=== PATIENT | male | born 1990 | race Caucasian/White ===

== ENCOUNTER → 2016-07-11 | Outpatient (CLI) | payer BC ==
[2016-07-11 10:14] LABS: PROTHROMBIN TIME 30.2 SEC (11.4-15.4)
== END ==
LOC: OD 09:15
PROVIDERS: ATTEND Internal Medicine
DX: I34.0 Nonrheumatic mitral (valve) insufficiency (principal); Z79.01 Long term (current) use of anticoagulants
CPT/HCPCS: 36415; 85610

== ENCOUNTER → 2016-09-02 | Outpatient (CLI) | payer BC ==
[2016-09-02 17:52] LABS: PROTHROMBIN TIME 27.2 SEC (11.4-15.4)
== END ==
LOC: OD 16:53
PROVIDERS: ATTEND Internal Medicine
DX: I34.0 Nonrheumatic mitral (valve) insufficiency (principal); Z79.01 Long term (current) use of anticoagulants
CPT/HCPCS: 36415; 85610

== ENCOUNTER → 2016-09-29 | Outpatient (CLI) | payer OTHER, BC ==
[2016-09-29 17:51] LABS: PROTHROMBIN TIME 19.7 SEC (11.4-15.4)
== END ==
LOC: OD 17:04
PROVIDERS: ATTEND Internal Medicine
DX: I34.0 Nonrheumatic mitral (valve) insufficiency (principal); Z79.01 Long term (current) use of anticoagulants
CPT/HCPCS: 36415; 85610

== ENCOUNTER → 2016-10-06 | Outpatient (CLI) | payer BC, OTHER ==
[2016-10-06 18:12] LABS: PROTHROMBIN TIME 27.7 SEC (11.4-15.4)
== END ==
LOC: OD 16:54
PROVIDERS: ATTEND Internal Medicine
DX: Z79.01 Long term (current) use of anticoagulants (principal); I34.0 Nonrheumatic mitral (valve) insufficiency
CPT/HCPCS: 36415; 85610

== ENCOUNTER → 2016-11-17 | Outpatient (CLI) | payer BC ==
[2016-11-17 17:52] LABS: PROTHROMBIN TIME 26.5 SEC (11.4-15.4)
== END ==
LOC: OD 16:54
PROVIDERS: ATTEND Internal Medicine
DX: I34.0 Nonrheumatic mitral (valve) insufficiency (principal); Z79.01 Long term (current) use of anticoagulants
CPT/HCPCS: 36415; 85610

== ENCOUNTER → 2016-12-15 | Outpatient (CLI) | payer BC ==
[2016-12-15 18:29] LABS: PROTHROMBIN TIME 33.1 SEC (11.4-15.4)
== END ==
LOC: OD 17:09
PROVIDERS: ATTEND Internal Medicine
DX: I34.0 Nonrheumatic mitral (valve) insufficiency (principal); Z79.01 Long term (current) use of anticoagulants
CPT/HCPCS: 36415; 85610

== ENCOUNTER → 2017-01-29 | Outpatient (CLI) | payer BC ==
[2017-01-29 18:17] LABS: PROTHROMBIN TIME 26.9 SEC (11.4-15.4)
== END ==
LOC: OD 16:46
PROVIDERS: ATTEND Internal Medicine
DX: I34.0 Nonrheumatic mitral (valve) insufficiency (principal); Z79.01 Long term (current) use of anticoagulants
CPT/HCPCS: 36415; 85610

== ENCOUNTER → 2017-03-19 | Outpatient (CLI) | payer BC | LOC: OD 16:59 | PROVIDERS: ATTEND Specialist | DX: Z79.01 Long term (current) use of anticoagulants (principal); Z95.2 Presence of prosthetic heart valve | CPT/HCPCS: 36415; 85610 ==

== ENCOUNTER → 2017-04-06 | Outpatient (CLI) | payer BC ==
--- NOTE | 2017-04-09 11:34 | XCELERA REPORT ---
[address] [address] Transthoracic Echocardiogram Report Name: LORI THOMPSON Age: 26 yrs Gender: Male : 1990 Patient Status: Outpatient Patient Location: Study Date: 04/06/2017 09:22 AM Height: 71 in Weight: 215 lb BSA: 2.2 m2 Procedure: A complete two-dimensional transthoracic echocardiogram was performed (2D, M-mode, spectral and color flow Doppler). The study was technically difficult with many images being suboptimal in quality. Reason For Study: PROSTHETIC HEART VALVE, AVR Z95.2 Ordering Physician: EMERALD ROJAS Performed By: Kate Nguyen Interpretation Summary The left ventricular ejection fraction is normal. There is borderline concentric left ventricular hypertrophy. The left ventricle is grossly normal size. LV diastolic function could not be adequately assessed. Wall motion cannot be accurately commented on, but no definite regional wall motion abnormalities noted. The right ventricular systolic function is normal. The right atrium is normal. The left atrial size is normal. There is a trace to mild amount of mitral regurgitation There is no mitral valve stenosis. There is a mechanical aortic valve. The prosthetic aortic valve is not well visualized. Mechanical Prosthetic valve, seems to be opening and closing normally. There is a trace or physiologic amount of tricuspid regurgitation Tricuspid regurgitation jet envelope not well defined to measure RV systolic pressure accurately. The aortic root is not well visualized but is probably normal size. The inferior vena cava appeared normal and decreased > 50% with respiration (RAP 5-10 mmHg) There is no pericardial effusion. MMode/2D Measurements & Calculations RVDd: 2.4 cm LVIDd: 4.9 cm FS: 40.0 % Ao root diam: 2.1 cm IVSd: 0.96 cm LVIDs: 2.9 cm EDV(Teich): 112.3 ml LVPWd: 0.96 cmESV(Teich): 33.2 ml Ao root area: 3.5 cm2 EF(Teich): 70.4 % LVOT diam: 2.0 cm LVOT area: 3.0 cm2 Doppler Measurements & Calculations MV E max mohan: MV dec slope: Ao V2 max: LV V1 max P.4 cm/sec 417.4 cm/sec2 242.7 cm/sec 1.6 mmHg MV A max mohan: MV dec time: Ao max PG: LV V1 mean P.9 cm/sec 0.22 sec 23.6 mmHg 1.0 mmHg MV E/A: 1.2 Ao V2 mean: LV V1 max: 174.1 cm/sec 63.7 cm/sec Ao mean PG: LV V1 mean: 13.4 mmHg 48.5 cm/sec Ao V2 VTI: 42.7 cm LV V1 VTI: ANTONIO(I,D): 1.1 cm2 15.2 cm ANTONIO(V,D): 0.80 cm2 SV(LVOT): 46.2 ml PA V2 max: 92.4 cm/sec PA max P.4 mmHg Left Ventricle The left ventricle is grossly normal size. There is borderline concentric left ventricular hypertrophy. The left ventricular ejection fraction is normal. LV diastolic function could not be adequately assessed. Wall motion cannot be accurately commented on, but no definite regional wall motion abnormalities noted. Right Ventricle The right ventricle is grossly normal size. There is normal right ventricular wall thickness. The right ventricular systolic function is normal. Atria The right atrium is normal. The left atrial size is normal. Interarterial septum not well visualized and not well dopplered. Cannot comment on ASD/PFO presence. Mitral Valve The mitral valve is grossly normal. There is no mitral valve stenosis. There is a trace to mild amount of mitral regurgitation. Aortic Valve Mechanical Prosthetic valve, seems to be functioning normally. There is a mechanical aortic valve. The prosthetic aortic valve is not well visualized. Tricuspid Valve The tricuspid valve is not well visualized secondary to technical limitations. There is no tricuspid stenosis. There is a trace or physiologic amount of tricuspid regurgitation. Tricuspid regurgitation jet envelope not well defined to measure RV systolic pressure accurately. Pulmonic Valve The pulmonic valve is not well visualized. Great Vessels The aortic root is not well visualized but is probably normal size. The inferior vena cava appeared normal and decreased > 50% with respiration (RAP 5-10 mmHg). Effusions There is no pericardial effusion. : EMERALD ROJAS > Paulo Briceno
== END ==
LOC: SP 09:12
PROVIDERS: ATTEND Specialist
DX: Z95.2 Presence of prosthetic heart valve (principal)
CPT/HCPCS: 93306

== ENCOUNTER → 2017-04-20 | Outpatient (CLI) | payer BC ==
[2017-04-20 18:20] LABS: ABSOLUTE LYMPHOCYTES (AUTO) 2.4 10^3/uL (0.5-4.7); ABSOLUTE MONOCYTES (AUTO) 0.6 10^3/uL (0.1-1.4); ABSOLUTE NEUT (AUTO) 4.7 10^3/uL (1.7-8.2); BASOPHILS % (AUTO) 0.5 % (0-2); EOSINOPHILS % (AUTO) 0.4 % (0-6); HEMATOCRIT 44.9 % (37.9-51.0); HEMOGLOBIN 15.6 g/dL (13.5-17.0); HGB HCT DIFFERENCE 1.9; LYMPHOCYTES % (AUTO) 30.7 % (13-45); MEAN CORPUSCULAR HGB CONC 34.6 g/dL (32.0-36.0); MEAN CORPUSCULAR VOLUME 87 fl (80-97); MONOCYTES % (AUTO) 7.8 % (3-13); RED BLOOD COUNT 5.19 10^6/uL (4.35-5.55); SEGMENTED NEUTROPHILS % (AUTO) 60.6 % (42-78); WHITE BLOOD COUNT 7.7 10^3/uL (4.0-10.5)
[2017-04-20 18:26] LABS: PROTHROMBIN TIME 28.4 SEC (11.4-15.4)
[2017-04-20 19:03] LABS: ALANINE AMINOTRANSFERASE 50 U/L (21-72); ALBUMIN 4.8 g/dL (3.5-5.0); ALKALINE PHOSPHATASE 83 U/L (38-126); ANION GAP 13 (5-19); ASPARTATE AMINO TRANSFERASE 63 U/L (17-59); BILIRUBIN,DIRECT 0.5 mg/dL (0.0-0.4); BILIRUBIN,TOTAL 0.9 mg/dL (0.2-1.3); BLOOD UREA NITROGEN 13 mg/dL (7-20); CALCIUM 9.4 mg/dL (8.4-10.2); CARBON DIOXIDE 27 mmol/L (22-30); CHLORIDE 104 mmol/L (98-107); CREATININE RESULT 0.92 mg/dL (0.52-1.25); GLUCOSE 63 mg/dL (75-110); POTASSIUM 3.8 mmol/L (3.6-5.0); SODIUM 143.6 mmol/L (137-145); TOTAL PROTEIN 7.9 g/dL (6.3-8.2)
== END ==
LOC: OD 17:09
PROVIDERS: ATTEND Internal Medicine
DX: I36.1 Nonrheumatic tricuspid (valve) insufficiency (principal); R01.1 Cardiac murmur, unspecified; E78.5 Hyperlipidemia, unspecified; Z79.01 Long term (current) use of anticoagulants; Z79.899 Other long term (current) drug therapy; Z95.2 Presence of prosthetic heart valve
CPT/HCPCS: 36415; 80053; 85025; 85610

== ENCOUNTER → 2017-04-26 | Outpatient (CLI) | payer BC ==
[2017-04-26 09:27] LABS: CHOLESTEROL 131.53 mg/dL (0-200); Direct HDL 37 mg/dL (>40); TRIGLYCERIDES 70 mg/dL (<150)
[2017-04-26 09:37] LABS: DIRECT LDL 80 mg/dL (<100)
== END ==
LOC: LAB 08:04
PROVIDERS: ATTEND Internal Medicine
DX: Z95.2 Presence of prosthetic heart valve (principal); I36.1 Nonrheumatic tricuspid (valve) insufficiency; R01.1 Cardiac murmur, unspecified; Z79.01 Long term (current) use of anticoagulants; E78.5 Hyperlipidemia, unspecified; Z79.899 Other long term (current) drug therapy
CPT/HCPCS: 36415; 80061

== ENCOUNTER → 2017-06-16 | Outpatient (CLI) | payer BC ==
[2017-06-16 16:57] LABS: PROTHROMBIN TIME 30.5 SEC (11.4-15.4)
== END ==
LOC: OD 15:53
PROVIDERS: ATTEND Specialist
DX: Z95.2 Presence of prosthetic heart valve (principal); Z79.01 Long term (current) use of anticoagulants
CPT/HCPCS: 36415; 85610

== ENCOUNTER → 2017-07-25 | Outpatient (CLI) | payer BC ==
[2017-07-25 10:17] LABS: INTERNATIONAL RATION (INR) 2.03; PROTHROMBIN TIME 24.1 SEC (11.4-15.4)
== END ==
LOC: OD 09:37
PROVIDERS: ATTEND Specialist
DX: Z95.2 Presence of prosthetic heart valve (principal); Z79.01 Long term (current) use of anticoagulants
CPT/HCPCS: 36415; 85610

== ENCOUNTER → 2017-08-01 | Outpatient (CLI) | payer BC ==
[2017-08-01 10:09] LABS: INTERNATIONAL RATION (INR) 2.09; PROTHROMBIN TIME 24.6 SEC (11.4-15.4)
== END ==
LOC: OD 08:58
PROVIDERS: ATTEND Specialist
DX: Z95.2 Presence of prosthetic heart valve (principal); Z79.01 Long term (current) use of anticoagulants
CPT/HCPCS: 36415; 85610

== ENCOUNTER → 2017-10-10 | Outpatient (CLI) | payer BC ==
[2017-10-10 10:59] LABS: INTERNATIONAL RATION (INR) 3.08; PROTHROMBIN TIME 33.2 SEC (11.4-15.4)
== END ==
LOC: OD 09:45
PROVIDERS: ATTEND Specialist
DX: Z95.2 Presence of prosthetic heart valve (principal); Z79.01 Long term (current) use of anticoagulants
CPT/HCPCS: 36415; 85610

== ENCOUNTER → 2017-10-31 | Outpatient (CLI) | payer BC ==
[2017-10-31 12:18] LABS: INTERNATIONAL RATION (INR) 2.42; PROTHROMBIN TIME 27.4 SEC (11.4-15.4)
== END ==
LOC: OD 10:47
PROVIDERS: ATTEND Specialist
DX: Z79.01 Long term (current) use of anticoagulants (principal); Z95.2 Presence of prosthetic heart valve
CPT/HCPCS: 36415; 85610

== ENCOUNTER → 2017-11-28 | Outpatient (CLI) | payer BC ==
[2017-11-28 11:23] LABS: INTERNATIONAL RATION (INR) 2.68; PROTHROMBIN TIME 29.8 SEC (11.4-15.4)
== END ==
LOC: OD 09:48
PROVIDERS: ATTEND Specialist
DX: Z95.2 Presence of prosthetic heart valve (principal); Z79.01 Long term (current) use of anticoagulants
CPT/HCPCS: 36415; 85610

== ENCOUNTER → 2018-01-06 | Outpatient (CLI) | payer BC ==
[2018-01-06 18:12] LABS: INTERNATIONAL RATION (INR) 2.04
== END ==
LOC: OD 16:09
PROVIDERS: ATTEND Specialist
DX: Z95.2 Presence of prosthetic heart valve (principal); Z79.01 Long term (current) use of anticoagulants
CPT/HCPCS: 36415; 85610

== ENCOUNTER → 2018-02-19 | Outpatient (CLI) | payer BC ==
[2018-02-19 10:01] LABS: PROTHROMBIN TIME 29.1 SEC (11.4-15.4)
== END ==
LOC: OD 09:08
PROVIDERS: ATTEND Specialist
DX: Z51.81 Encounter for therapeutic drug level monitoring (principal); Z95.2 Presence of prosthetic heart valve; Z79.01 Long term (current) use of anticoagulants
CPT/HCPCS: 36415; 85610

== ENCOUNTER → 2018-04-17 | Outpatient (CLI) | payer BC ==
[2018-04-17 10:48] LABS: PROTHROMBIN TIME 27.3 SEC (11.4-15.4)
== END ==
LOC: OD 09:18
PROVIDERS: ATTEND Specialist
DX: Z51.81 Encounter for therapeutic drug level monitoring (principal); Z79.01 Long term (current) use of anticoagulants; Z95.2 Presence of prosthetic heart valve
CPT/HCPCS: 36415; 85610

== ENCOUNTER → 2018-06-07 | Outpatient (CLI) | payer BC ==
[2018-06-07 15:25] LABS: PROTHROMBIN TIME 28.2 SEC (11.4-15.4)
== END ==
LOC: OD 14:05
PROVIDERS: ATTEND Specialist
DX: Z51.81 Encounter for therapeutic drug level monitoring (principal); Z79.01 Long term (current) use of anticoagulants; Z95.2 Presence of prosthetic heart valve
CPT/HCPCS: 36415; 85610

== ENCOUNTER → 2018-08-16 | Outpatient (CLI) | payer BC ==
[2018-08-16 09:35] LABS: INTERNATIONAL RATION (INR) 2.84; PROTHROMBIN TIME 31.2 SEC (11.4-15.4)
== END ==
LOC: OD 08:56
PROVIDERS: ATTEND Specialist
DX: Z51.81 Encounter for therapeutic drug level monitoring (principal); Z79.01 Long term (current) use of anticoagulants; Z95.2 Presence of prosthetic heart valve
CPT/HCPCS: 36415; 85610

== ENCOUNTER → 2018-09-27 | Outpatient (CLI) | payer BC ==
[2018-09-27 14:00] LABS: INTERNATIONAL RATION (INR) 2.52; PROTHROMBIN TIME 28.4 SEC (11.4-15.4)
== END ==
LOC: OD 12:52
PROVIDERS: ATTEND Specialist
DX: R01.1 Cardiac murmur, unspecified (principal); I36.1 Nonrheumatic tricuspid (valve) insufficiency; E78.5 Hyperlipidemia, unspecified; Z95.2 Presence of prosthetic heart valve; Z79.01 Long term (current) use of anticoagulants; Z79.899 Other long term (current) drug therapy
CPT/HCPCS: 36415; 85610; 86900; 86901

== ENCOUNTER → 2018-12-10 | Outpatient (CLI) | payer BC ==
[2018-12-10 16:30] LABS: INTERNATIONAL RATION (INR) 2.58; PROTHROMBIN TIME 28.9 SEC (11.4-15.4)
== END ==
LOC: OD 15:51
PROVIDERS: ATTEND Specialist
DX: Z51.81 Encounter for therapeutic drug level monitoring (principal); Z79.01 Long term (current) use of anticoagulants; Z95.2 Presence of prosthetic heart valve
CPT/HCPCS: 36415; 85610

== ENCOUNTER → 2019-02-15 | Outpatient (CLI) | payer BC ==
[2019-02-15 11:56] LABS: INTERNATIONAL RATION (INR) 3.23; PROTHROMBIN TIME 33.8 SEC (11.4-15.4)
== END ==
LOC: OD 11:05
PROVIDERS: ATTEND Specialist
DX: Z79.01 Long term (current) use of anticoagulants (principal); Z95.2 Presence of prosthetic heart valve
CPT/HCPCS: 36415; 85610

== ENCOUNTER → 2019-07-04 | Outpatient (CLI) | payer BC ==
[2019-07-04 17:08] LABS: INTERNATIONAL RATION (INR) 2.95; PROTHROMBIN TIME 31.4 SEC (11.4-15.4)
== END ==
LOC: OD 15:57
PROVIDERS: ATTEND Specialist
DX: Z51.81 Encounter for therapeutic drug level monitoring (principal); Z79.01 Long term (current) use of anticoagulants; Z95.2 Presence of prosthetic heart valve
CPT/HCPCS: 36415; 85610

== ENCOUNTER → 2019-08-31 | Outpatient (CLI) | payer BC ==
[2019-08-31 15:47] LABS: INTERNATIONAL RATION (INR) 2.78; PROTHROMBIN TIME 29.9 SEC (11.4-15.4)
== END ==
LOC: OD 14:16
PROVIDERS: ATTEND Specialist
DX: Z51.81 Encounter for therapeutic drug level monitoring (principal); Z79.01 Long term (current) use of anticoagulants; Z95.2 Presence of prosthetic heart valve
CPT/HCPCS: 36415; 85610

== ENCOUNTER → 2019-11-09 | Outpatient (CLI) | payer BC ==
[2019-11-09 12:56] LABS: INTERNATIONAL RATION (INR) 2.47; PROTHROMBIN TIME 27.2 SEC (11.4-15.4)
== END ==
LOC: OD 12:23
PROVIDERS: ATTEND Specialist
DX: Z51.81 Encounter for therapeutic drug level monitoring (principal); Z79.01 Long term (current) use of anticoagulants; Z95.2 Presence of prosthetic heart valve
CPT/HCPCS: 36415; 85610

== ENCOUNTER → 2020-04-12 | Outpatient (CLI) | payer BC ==
[2020-04-12 13:21] LABS: INTERNATIONAL RATION (INR) 3.01; PROTHROMBIN TIME 31.1 SEC (11.4-15.4)
== END ==
LOC: OD 12:35
PROVIDERS: ATTEND Specialist
DX: Z95.2 Presence of prosthetic heart valve (principal); I36.1 Nonrheumatic tricuspid (valve) insufficiency; Z79.01 Long term (current) use of anticoagulants; R01.1 Cardiac murmur, unspecified; E78.5 Hyperlipidemia, unspecified; Z79.899 Other long term (current) drug therapy
CPT/HCPCS: 36415; 85610